=== PATIENT | female | born 1985 | race Caucasian/White ===

== ENCOUNTER 2019-02-10 12:49 | Emergency (ER) | payer OTHER ==
[2019-02-10 12:58] VITALS: BP 96/66; PULSE 88; TEMP 98.1; BMI 22.8
[2019-02-10] MEDS ORDERED: CLINDAMYCIN 600MG PREMIX IVPB 600 MG/50 ML BAG IVPB ONE ×2 (13:29→13:43)
--- NOTE | 2019-02-10 13:29 | PDOC ---
History of Present Illness - General Chief Complaint: Toothache Stated Complaint: TOOTHACHE/SWOLLEN LT SIDE FACE Time Seen by Provider: 02/10/19 13:16 History Source: Patient Exam Limitations: No Limitations - History of Present Illness Initial Comments: 02/10/19 13:33 Patient here with complaints of worsening tooth pain with multiple cracked teeth and dental caries but had onset of facial swelling started yesterday evening. Woke up today and had swelling to her eye and cheek and was concerned Timing/Duration: unsure, 24 hours Severity: moderate, severe Associated Symptoms: reports: fever/chills, malaise Past History - Travel Traveled outside of the country in the last 30 days: No Close contact w/someone who was outside of country & ill: No - Past Medical History Allergies/Adverse Reactions: Allergies Allergy/AdvReac Type Severity Reaction Status Date / Time No Known Allergies Allergy Verified 02/10/19 12:58 Home Medications: Ambulatory Orders Oxycodone HCl/Acetaminophen [Percocet 5-325 mg Tablet] 1 tab PO Q4H #20 tablet MDD 6 06/06/16 Penicillin V Potassium [Pen Vee K -] 500 mg PO QID #40 tablet 06/06/16 Clindamycin [Cleocin -] 300 mg PO TID #21 capsule 02/10/19 Naproxen [Naprosyn -] 500 mg PO BID #30 tablet 02/10/19 COPD: No - Suicide/Smoking/Psychosocial Hx Smoking Status: Yes Smoking History: Current every day smoker Number of Cigarettes Smoked Daily: 10 Information on smoking cessation initiated: No 'Breaking Loose' booklet given: 06/06/16 Hx Alcohol Use: No Drug/Substance Use Hx: No Review of Systems - Review of Systems Able to Perform ROS?: Yes Is the patient limited Thai proficient: Yes Constitutional: Yes: Symptoms Reported, See HPI, Malaise. No: Fever HEENTM: Yes: Symptoms Reported, See HPI, Eye Pain, Ear Pain, Mouth Pain, Dental Problems, Mouth Swelling Respiratory: Yes: See HPI. No: Symptoms reported, Cough Integumentary: Yes: Symptoms Reported All Other Systems: Reviewed and Negative *Physical Exam - Vital Signs Last Vital Signs Temp Pulse Resp BP Pulse Ox 98.1 F 88 18 96/66 100 02/10/19 12:55 02/10/19 12:55 02/10/19 12:55 02/10/19 12:55 02/10/19 12:55 - Physical Exam General Appearance: Yes: Nourished, Appropriately Dressed, Apparent Distress, Moderate Distress HEENT: positive: SEBLE, TMs Normal, Pharynx Normal, Other (periorbital and left cheek edema with tenderness but no palpable abscess noted to bear gingival surface. Has multiple areas of dental decay and erosion. Left upper only molar cracked in half with exposed pulp) Neck: positive: Tender, Supple, Lymphadenopathy (R), Lymphadenopathy (L) Gastrointestinal/Abdominal: positive: Normal Bowel Sounds, Soft. negative: Tender Integumentary: positive: Dry, Warm, Pale Neurologic: positive: elderly caregiver II-XII NML intact, Fully Oriented, Alert, Normal Mood/ Affect, Normal Response, Motor Strength 12/10 ED Treatment Course - LABORATORY CBC & Chemistry Diagram: 02/10/19 13:46 02/10/19 13:46 Medical Decision Making - Medical Decision Making 02/10/19 13:35 Patient with significant facial swelling due to dental erosion and decay. We'll treat with dose of clindamycin and evaluate labs. If no resolution or worsen a need to transfer for definitive care. 02/10/19 14:34 Patient much improved after 600 mg dose of clindamycin, and IV Toradol. Facial swelling is 50% less, states feels better, and less dental pain. Patient will receive antibiotics and continue clindamycin 3 times a day for one week, and understands urgent need to be seen at dental clinic first thing Tuesday *DC/Admit/Observation/Transfer Diagnosis at time of Disposition: Abscess, dental - Discharge Dispostion Disposition: HOME Condition at time of disposition: Stable Decision to Admit order: No - Prescriptions Prescriptions: Clindamycin [Cleocin -] 300 mg PO TID #21 capsule Naproxen [Naprosyn -] 500 mg PO BID #30 tablet - Referrals - Patient Instructions Printed Discharge Instructions: DI for Tooth Abscess Additional Instructions: Rest, drink lots of fluids: Teas, water, soups Saltwater gargles/ keep mouth clean and rinse after each meal May use wet teabag for pain relief to area Avoid hard chewing foods, stick to ice cream, Jell-O, yogurt etc. Tylenol or Motrin for fever and pain Complete all medication as prescribed Seek dental appointment as soon as possible for evaluation of dental injury/pain Followup with private physician in one to 2 days as needed Return to emergency department for worsened symptoms, fevers, swelling to face or worsened pain [facility] AT [address] [address] [email or web address] PATIENT CARE: [phone] - Post Discharge Activity Forms/Work/School Notes: Back to Work
[2019-02-10] MEDS ORDERED: KETOROLAC TROMETHAMINE 30 MG/1 ML VIAL IM ONE (13:30)
[2019-02-10] MEDS ORDERED: KETOROLAC TROMETHAMINE 30 MG/1 ML VIAL ONE (13:42)
[2019-02-10 13:55] LABS: BASO % 1.3 % (0-2.0); HEMOGLOBIN 11.6 GM/dL (10.7-15.3); LYMPH % 18.7 % (8-40); MCH 23.6 pg (25.7-33.7); MCHC 32.1 g/dl (32.0-36.0); MEAN CELL VOLUME 73.5 fl (80-96); MEAN PLT VOLUME 7.4 fl (7.5-11.1); RBC 4.91 M/mm3 (3.60-5.2); RDW 21.3 % (11.6-15.6); WHITE BLOOD COUNT 11.7 K/mm3 (4.0-10.0)
[2019-02-10 14:23] LABS: BILIRUBIN,TOTAL 0.3 mg/dL (0.2-1); BLOOD UREA NITROGEN 9.5 mg/dL (7-18); CALCIUM 9.4 mg/dL (8.5-10.1); CREATININE 0.6 mg/dL (0.55-1.3); POTASSIUM 4.5 mmol/L (3.5-5.1); TOT PROT 6.7 g/dl (6.4-8.2)
[2019-02-10 14:25] LABS: PLATELET COUNT 397 K/MM3 (134-434)
== END 2019-02-10 14:50 | disposition home or self-care (01) ==
LOC: JER 12:49 → JERFT 12:49 → JER 14:50
PROC: 3E0233Z Introduction of Anti-inflammatory into Muscle, Percutaneous Approach (ICD-10-PCS; principal; 2019-02-10)
PROC: 3E033GC Introduction of Other Therapeutic Substance into Peripheral Vein, Percutaneous Approach (ICD-10-PCS; 2019-02-10)
PROC: 3E03329 Introduction of Other Anti-infective into Peripheral Vein, Percutaneous Approach (ICD-10-PCS; 2019-02-10)
DX: K04.7 Periapical abscess without sinus (principal); K02.9 Dental caries, unspecified
CPT/HCPCS: 36415; 80053; 85025; 99281-25

== ENCOUNTER 2019-07-14 19:17 | Emergency (ER) | payer OTHER ==
[2019-07-14 19:22] VITALS: BP 122/67; PULSE 81; TEMP 97.9; BMI 22.8
--- NOTE | 2019-07-14 19:33 | PDOC ---
History of Present Illness - General Chief Complaint: Toothache Stated Complaint: TOOTH PAIN Time Seen by Provider: 07/14/19 19:33 History Source: Patient - History of Present Illness Initial Comments: 07/14/19 20:31 Chief complaint: Tooth issue Patient 33-year-old female with no significant medical problems with a history of dental issues, has not seen a dentist who states that she went to eat something today and 1 of her teeth cracked. She took some aspirin which helped the pain. GENERAL/CONSTITUTIONAL: No fever, weakness. dizziness HEAD, EYES, EARS, NOSE AND THROAT: No change in vision. No ear pain or discharge. No sore throat. + Dental issue CARDIOVASCULAR: No chest pain RESPIRATORY: No shortness of breath or cough GASTROINTESTINAL: No pain, nausea, vomiting, diarrhea or constipation GENITOURINARY: No dysuria MUSCULOSKELETAL: No neck or back pain SKIN: No rash NEUROLOGIC: No headache, vertigo, loss of consciousness, or loss of sensation. GENERAL: The patient is awake, alert, and fully oriented, in no acute distress. HEAD: Normal with no signs of trauma. EYES: Pupils equal, round and reactive to light, sclera anicteric, conjunctiva clear. ENT: pharynx: no erythema, no exudate, uvula midline, + poor dentition, decay to upper right canine area with tooth broken behind, no swelling NECK: supple CHEST: clear, nontender, rr ABD: soft, nontender BACK: no tenderness or signs of injury EXTREMITIES: Normal range of motion, no edema. NEUROLOGICAL: Normal speech, normal gait. SKIN: Warm, Dry Past History - Past Medical History Allergies/Adverse Reactions: Allergies Allergy/AdvReac Type Severity Reaction Status Date / Time No Known Allergies Allergy Verified 07/14/19 19:23 Home Medications: Ambulatory Orders Penicillin V Potassium [Pen Vee K -] 500 mg PO QID #40 tablet 06/06/16 Clindamycin [Cleocin -] 300 mg PO TID #21 capsule 02/10/19 Amoxicillin 875 mg PO BID #14 tablet 07/14/19 Naproxen [Naprosyn -] 500 mg PO BID #30 tablet 07/14/19 Oxycodone HCl/Acetaminophen [Percocet 5-325 mg Tablet] 1 tab PO Q4H #20 tablet MDD 6 07/14/19 COPD: No - Psycho Social/Smoking Cessation Hx Smoking Status: Yes Smoking History: Current every day smoker Number of Cigarettes Smoked Daily: 20 Information on smoking cessation initiated: Yes 'Breaking Loose' booklet given: 06/06/16 Hx Alcohol Use: No Drug/Substance Use Hx: No *Physical Exam - Vital Signs Last Vital Signs Temp Pulse Resp BP Pulse Ox 97.9 F 81 18 122/67 100 07/14/19 19:20 07/14/19 19:20 07/14/19 19:20 07/14/19 19:20 07/14/19 19:20 Medical Decision Making - Medical Decision Making 07/14/19 20:32 Patient with recurrent dental issues, who states that she broke a tooth when she chewed on something earlier. Patient has generalized dental decay, has not seen a dentist in a long time. Patient was instructed that she needs to see a dentist. Will prescribe Naprosyn, amoxicillin and Percocet. Discussed issues, findings, results, applicable medications and treatments and follow-up. All these were understood and all questions were answered Discharge - Discharge Information Problems reviewed: Yes Clinical Impression/Diagnosis: Dental caries Condition: Stable Disposition: HOME - Admission No - Additional Discharge Information Prescriptions: Amoxicillin 875 mg PO BID #14 tablet Naproxen [Naprosyn -] 500 mg PO BID #30 tablet Oxycodone HCl/Acetaminophen [Percocet 5-325 mg Tablet] 1 tab PO Q4H #20 tablet MDD 6 Prescription Drug Monitoring Program (I-STOP) results: I-STOP reviewed and no issues identified - Follow up/Referral - Patient Discharge Instructions Patient Printed Discharge Instructions: DI for Dental Pain Additional Instructions: You can take Naprosyn 500 mg twice a day for pain, you can take Percocet at bedtime. The amoxicillin twice a day for 7 days It is very important for you to see a dentist as this will continue to get worse Return to the ER if unable to swallow, fever or a large amount of swelling. The two hospitals that have dental services are [facility]/ [place] [address] [address] and [facility] - Post Discharge Activity
== END 2019-07-14 20:01 | disposition home or self-care (01) ==
LOC: JERFT 19:17
DX: K02.9 Dental caries, unspecified (principal); F17.210 Nicotine dependence, cigarettes, uncomplicated
CPT/HCPCS: 99281-25

== ENCOUNTER 2020-05-28 23:45 | Emergency (ER) | payer OTHER ==
[2020-05-28 23:48] VITALS: BP 109/60; PULSE 88; TEMP 98.4; BMI 21.9
--- OUTSIDE RECORDS SUMMARY | 2020-05-28 23:56 | XMS ---
:1985 Author Organization [facility] Support Name Relationship Address Phone UE Unavailable Unavailable Unavailable GAVIN SMITH [address] [place] [address] Re-disclosure Warning The records that you are about to access may contain information from federally- assisted alcohol or drug abuse programs. If such information is present, then the following federally mandated warning applies: This information has been disclosed to you from records protected by federal confidentiality rules (42 CFR part 2). The federal rules prohibit you from making any further disclosure of this information unless further disclosure is expressly permitted by the written consent of the person to whom it pertains or as otherwise permitted by 42 CFR part 2. A general authorization for the release of medical or other information is NOT sufficient for this purpose. The Federal rules restrict any use of the information to criminally investigate or prosecute any alcohol or drug abuse patient.The records that you are about to access may contain highly sensitive health information, the redisclosure of which is protected by Article 27-F of the [facility] [place] Public Health law. If you continue you may haveaccess to information: Regarding HIV / AIDS; Provided by facilities licensed or operated by the [facility] [place] Office of Mental Health; or Provided by the [facility] [place] Office for People With Developmental Disabilities. If such information is present, then the following [facility] [place] mandated warning applies: This information has been disclosed to you from confidential records which are protected by state law. State law prohibits you from making any further disclosure of this information without the specific written consent of the person to whom it pertains, or as otherwise permitted by law. Any unauthorized further disclosure in violation of state law may result in a fine or custodial sentence or both. A general authorization for the release of medical or other information is NOT sufficient authorization for further disclosure. Insurance Providers Payer name Policy type Policy ID Covered Covered democrat's Policy P ambrose / Coverage democrat ID relationship to Higgins Inf ormation type higgins [employer] MEDICAID [id number] SP [id number] [employer] PLAN MEDICAID [id number] SP [id number] MEDICAID [id number] SP [id number] SELF PAY SP INSURANCE LESA [id number] SP [id number] 100 HEALTH NON CAP
[2020-05-29] MEDS ORDERED: KETOROLAC TROMETHAMINE 30 MG/1 ML VIAL IM ONE (00:11)
[2020-05-29] MEDS ORDERED: LIDOCAINE VISCOUS 2% ORAL/TOP 20 ML UNIT-DOSE CUP MM ONE (00:12)
[2020-05-29] MEDS ORDERED: LIDOCAINE VISCOUS 2% ORAL/TOP 20 ML UNIT-DOSE CUP ONE (00:18)
[2020-05-29] MEDS ORDERED: KETOROLAC TROMETHAMINE 30 MG/1 ML VIAL ONE (00:18)
--- NOTE | 2020-05-29 00:18 | PDOC ---
History of Present Illness - General Chief Complaint: Toothache Stated Complaint: TOOTHACHE Time Seen by Provider: 05/29/20 00:06 History Source: Patient Exam Limitations: No Limitations - History of Present Illness Initial Comments: 05/29/20 00:12 34-year-old female no past medical history complaining of toothache. Patient states that she was recently seen by A dentist who stated that she needed several extractions due to poor dental hygiene. Patient denies any drooling trismus facial asymmetry or swelling difficulty swallowing fever chills chest pain shortness of breath. 05/29/20 00:40 Past History - Medical History Allergies/Adverse Reactions: Allergies Allergy/AdvReac Type Severity Reaction Status Date / Time No Known Allergies Allergy Verified 05/28/20 23:48 Home Medications: Ambulatory Orders Penicillin V Potassium [Pen Vee K -] 500 mg PO QID #40 tablet 06/06/16 Clindamycin [Cleocin -] 300 mg PO TID #21 capsule 02/10/19 Amoxicillin 875 mg PO BID #14 tablet 07/14/19 Naproxen [Naprosyn -] 500 mg PO BID #30 tablet 07/14/19 Oxycodone HCl/Acetaminophen [Percocet 5-325 mg Tablet] 1 tab PO Q4H #20 tablet MDD 6 07/14/19 Chlorhexidine Gluconate [Peridex -] 15 ml MM TID #1 bottle 05/29/20 Clindamycin [Cleocin -] 300 mg PO TID #21 capsule 05/29/20 Ibuprofen [Ibu] 600 mg PO TID 10 Days #30 tablet 05/29/20 Lidocaine 2% Viscous Oral [Xylocaine 2% Viscous Oral -] 20 ml PO TID #1 bottle 05/29/20 COPD: No - Reproductive History Is Patient Now?: No - Psycho-Social/Smoking History Smoking Status: Yes Smoking History: Current every day smoker Number of Cigarettes Smoked Daily: 10 Information on smoking cessation initiated: Yes 'Breaking Loose' booklet given: 06/06/16 - Substance Abuse Hx (Audit-C & DAST Scrn) How often the patient has a drink containing alcohol: Never Score: In Men: 4 or > Positive; In Women: 3 or > Positive: 0 Screen Result (Pos requires Nsg. Audit-10AR): Negative In the last yr the pt used illegal drug/Rx for NonMed reason: No Score: Yes response is considered Positive: 0 Screen Result (Positive result requires Nsg. DAST-10): Negative *Physical Exam - Vital Signs Last Vital Signs Temp Pulse Resp BP Pulse Ox 98.4 F 88 18 109/60 97 05/28/20 23:46 05/28/20 23:46 05/28/20 23:46 05/28/20 23:46 05/28/20 23:46 - Physical Exam 05/29/20 00:13 Gen: AAOx 3, no acute distress, comfortable, no signs of respiratory distress HENT: atraumatic, normocephalic with no laceration or contusion. Nasal mucosa without erythema. Oropharynx without erythema or exudates. Mucous membranes moist. Mouth: Extremely poor dental hygiene with all 4 molars bilaterally and top and bottom missing with tooth #28 cracked and cavitated with exposed dentin no surrounding erythema or signs of abscess EYES: PERRL, EOM intact, conjunctiva pink NECK: supple; trachea midline; no JVD, no lymphadenopathy, or thyromegaly CV: RRR no murmurs, gallops, or rubs. CHEST: CTA b/l no wheezing, rales or rhonchi ABD: +BS/ND. no TTP; soft, no rebound, no guarding NEURO: normal speech, CN II-XII intact, sensation intact, normal gait, no cerebellar deficits MS: 5/5 strength in all extremities, FROM intact in all extremities. 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 Reasons to return emergently to ER explained and given. Importance of follow up with PMD and other specialists as indicated stressed to pt. Pt verbalized understanding of instructions. Pt to follow up with PMD in 2 days. Discharge - Discharge Information Problems reviewed: Yes Clinical Impression/Diagnosis: Toothache Condition: Stable Disposition: HOME - Additional Discharge Information Prescriptions: Clindamycin [Cleocin -] 300 mg PO TID #21 capsule Ibuprofen [Ibu] 600 mg PO TID 10 Days #30 tablet Chlorhexidine Gluconate [Peridex -] 15 ml MM TID #1 bottle Lidocaine 2% Viscous Oral [Xylocaine 2% Viscous Oral -] 20 ml PO TID #1 bottle - Follow up/Referral - Patient Discharge Instructions Patient Printed Discharge Instructions: DI for Dental Pain [facility] Post Discharge Activity
== END 2020-05-29 00:51 | disposition home or self-care (01) ==
LOC: JER 23:45
PROC: 3E0233Z Introduction of Anti-inflammatory into Muscle, Percutaneous Approach (ICD-10-PCS; principal; 2020-05-28)
DX: K08.89 Other specified disorders of teeth and supporting structures (principal)
CPT/HCPCS: 99284-25

== ENCOUNTER 2020-09-10 08:39 | Emergency (ER) | payer OTHER ==
[2020-09-10 08:45] VITALS: BP 123/62; PULSE 100; TEMP 98.1; BMI 25.6
== END 2020-09-10 10:12 | disposition home or self-care (01) ==
LOC: JERFT 08:39 → JER 08:39 → JERFT 10:12
DX: K02.9 Dental caries, unspecified (principal)
CPT/HCPCS: 99283-25